=== PATIENT | female | born 1975 | race Two or more races ===

== ENCOUNTER 2021-08-28 11:40 | Inpatient (IN) | payer MEDICAID, OTHER ==
[~2021-08-28] VITALS: Ht 165.1 cm; Wt 100.5 kg
[2021-08-28] MEDS: POTASSIUM CHL 20MEQ/100ML 100 ML IV SCH (01:00)
[2021-08-28] MEDS: cefTRIAXone 1GM/50ML D5W 50 ML IV SCH (01:24)
[2021-08-28] MEDS: metroNIDAZOLE 500MG/100ML 100 ML IV SCH (01:24)
[2021-08-28] MEDS ORDERED: PROMETHAZINE HCL 25 MG/ML 1ML IV ONE (12:00)
[2021-08-28] MEDS ORDERED: SODIUM CHLORIDE 0.9% 1,000 ML IVB ONE (12:00)
[2021-08-28 13:42] LABS: Basophils # (auto) 0.1 10 ^3/uL (0-0.2); Basophils % (auto) 0.5 % (0.0-2.0); Eosinophils # (auto) 0 10 ^3/uL (0-0.8); Eosinophils % (auto) 0.1 % (0.0-7.0); Hematocrit 39.7 % (36.0-46.0); Lymphocytes # (auto) 1.6 10 ^3/uL (0.4-5.4); Lymphocytes % (auto) 7.8 % (10.0-50.0); Mean Corpuscular Hemoglobin 28.5 pg (28.0-32.0); Mean Corpuscular Hgb Conc. 32.7 g/dL (32.0-36.0); Mean Corpuscular Volume 87.2 fL (80.0-100.0); Monocytes # (auto) 0.8 10 ^3/uL (0-1.3); Neutrophils # (auto) 17.9 10 ^3/uL (1.6-8.6); Neutrophils % (auto) 87.6 % (37.0-80.0); Red Blood Cells 4.56 10^6/uL (4.0-5.20); Red Cell Distribution Width 13.6 % (11.8-14.3); White Blood Cell 20.4 10^3/uL (4.4-10.8)
[2021-08-28 14:04] LABS: Albumin 3.4 g/dL (3.4-5.0); Calcium 8.5 mg/dL (8.5-10.1)
[2021-08-28 14:06] LABS: BUN/Creatinine Ratio 11.5
[2021-08-28 14:13] LABS: Bilirubin, Total 0.8 mg/dL (0.2-1.0); Total Protein 7.9 g/dL (6.4-8.2)
[2021-08-28 14:37] LABS: Potassium 2.8 mmol/L (3.5-5.1)
[2021-08-28] MEDS ORDERED: SODIUM CHLORIDE 0.9% 1,000 ML IV ONE (15:00)
[2021-08-28] MEDS ORDERED: levoFLOXacin 500MG 100 ML IV ONE (15:00)
[2021-08-28] MEDS ORDERED: POTASSIUM CHL 20 Meq TABLET PO ONE (15:00)
[2021-08-28 15:22] LABS: Urine Bacteria FEW /hpf (None Seen); Urine Blood 3+ /uL (Negative); Urine Specific Gravity 1.009 (1.001-1.035); Urine WBC 7 /hpf (0 - 5)
[2021-08-28] MEDS ORDERED: SODIUM CHLORIDE 0.9% 1,000 ML IV SCH (23:15)
[2021-08-28] MEDS ORDERED: ACETAMINOPHEN 325 MG TAB PO PRN (23:15)
[2021-08-28] MEDS ORDERED: ONDANSETRON HCL 4 MG/2 ML VIAL IV PRN (23:15)
[2021-08-28] MEDS: MORPHINE SULFATE INJ 2 MG/ml SYRG IV PRN (23:34)
[2021-08-29] MEDS ORDERED: MORPHINE SULFATE INJ 2 MG/ml SYRG IV PRN
[2021-08-29] MEDS ORDERED: NITROGLYCERIN 0.4 MG SL TAB SL PRN
[2021-08-29] MEDS: MORPHINE SULFATE INJ 2 MG/ml SYRG IV PRN ×2 (04:38→10:41)
[2021-08-29 04:46] VITALS: BP_SYST 118; BP_SYST 122; BP_DIAS 58; BP_DIAS 59; BP_DIAS 85
[2021-08-29 05:00] VITALS: BP 122/57
[2021-08-29] MEDS: metroNIDAZOLE 500MG/100ML 100 ML IV SCH ×3 (06:07→22:16)
[2021-08-29 09:00] VITALS: BP 109/60
[2021-08-29 09:00] LABS: Basophils # (auto) 0 10 ^3/uL (0-0.2); Basophils % (auto) 0.2 % (0.0-2.0); Eosinophils # (auto) 0.1 10 ^3/uL (0-0.8); Eosinophils % (auto) 0.4 % (0.0-7.0); Hematocrit 34.8 % (36.0-46.0); Hemoglobin 11.4 g/dL (12.2-16.2); Lymphocytes # (auto) 1.5 10 ^3/uL (0.4-5.4); Mean Corpuscular Hemoglobin 28.7 pg (28.0-32.0); Mean Corpuscular Hgb Conc. 32.7 g/dL (32.0-36.0); Monocytes # (auto) 0.8 10 ^3/uL (0-1.3); Monocytes % (auto) 4.4 % (0.0-12.0); Neutrophils # (auto) 14.9 10 ^3/uL (1.6-8.6); Red Blood Cells 3.95 10^6/uL (4.0-5.20); Red Cell Distribution Width 13.7 % (11.8-14.3); White Blood Cell 17.2 10^3/uL (4.4-10.8)
[2021-08-29 09:16] LABS: INR 1.34 (0.9-1.15); Partial Thromboplastin Time 31.8 sec (24.6-33.4)
[2021-08-29 09:22] LABS: Albumin 2.4 g/dL (3.4-5.0); Calcium 7.4 mg/dL (8.5-10.1); Potassium 3.2 mmol/L (3.5-5.1)
[2021-08-29 09:24] LABS: BUN/Creatinine Ratio 9.1
[2021-08-29 09:27] LABS: Bilirubin, Total 0.5 mg/dL (0.2-1.0); Total Protein 6.2 g/dL (6.4-8.2)
[2021-08-29] MEDS: FAMOTIDINE (10MG/ML) 2ML VL IV SCH (10:40)
[2021-08-29 13:00] VITALS: BP 116/62
[2021-08-29] MEDS ORDERED: HYDR25TA5 GT (15:19)
[2021-08-29] MEDS ORDERED: CETI1TAB36 PO (15:19)
[2021-08-29] MEDS ORDERED: FENO145T27 OR (15:19)
[2021-08-29] MEDS ORDERED: CYCL-839 PO (15:19)
[2021-08-29] MEDS ORDERED: OMEP20TA PO (15:19)
[2021-08-29] MEDS ORDERED: CHOL20007 PO (15:19)
[2021-08-29] MEDS ORDERED: HYDR-4902 PO (15:20)
[2021-08-29] MEDS: D5W/SOD CHL 0.45%/KCL 40MEQ 1,000 ML IV SCH ×2 (16:15→18:15)
[2021-08-29] MEDS: MORPHINE SULFATE 4 MG/ML SYR/VIAL IV PRN ×2 (16:29→21:16)
[2021-08-29 17:00] VITALS: BP 117/64
[2021-08-29] MEDS: cefTRIAXone 1GM/50ML D5W 50 ML IV SCH (21:16)
[2021-08-29 21:42] VITALS: BP 114/65
[2021-08-30] MEDS: D5W/SOD CHL 0.45%/KCL 40MEQ 1,000 ML IV SCH ×2 (04:49→14:15)
[2021-08-30 05:00] VITALS: BP 118/62
[2021-08-30 06:08] LABS: Basophils # (auto) 0 10 ^3/uL (0-0.2); Basophils % (auto) 0.2 % (0.0-2.0); Eosinophils # (auto) 0.1 10 ^3/uL (0-0.8); Eosinophils % (auto) 0.7 % (0.0-7.0); Hematocrit 33.8 % (36.0-46.0); Lymphocytes # (auto) 1.2 10 ^3/uL (0.4-5.4); Lymphocytes % (auto) 9.5 % (10.0-50.0); Mean Corpuscular Hemoglobin 28.9 pg (28.0-32.0); Mean Corpuscular Hgb Conc. 32.7 g/dL (32.0-36.0); Mean Corpuscular Volume 88.4 fL (80.0-100.0); Monocytes # (auto) 0.5 10 ^3/uL (0-1.3); Monocytes % (auto) 3.9 % (0.0-12.0); Neutrophils # (auto) 10.8 10 ^3/uL (1.6-8.6); Neutrophils % (auto) 85.7 % (37.0-80.0); Red Blood Cells 3.82 10^6/uL (4.0-5.20); Red Cell Distribution Width 13.9 % (11.8-14.3); White Blood Cell 12.6 10^3/uL (4.4-10.8)
[2021-08-30] MEDS: metroNIDAZOLE 500MG/100ML 100 ML IV SCH ×3 (06:21→22:00)
[2021-08-30 06:32] LABS: Potassium 4.1 mmol/L (3.5-5.1)
[2021-08-30 06:40] LABS: Albumin 2.3 g/dL (3.4-5.0); BUN/Creatinine Ratio 12.9; Bilirubin, Total 0.4 mg/dL (0.2-1.0); Calcium 7.8 mg/dL (8.5-10.1); Total Protein 6.4 g/dL (6.4-8.2)
[2021-08-30] MEDS: MORPHINE SULFATE INJ 2 MG/ml SYRG IV PRN ×4 (07:06→21:14)
[2021-08-30 07:55] VITALS: BP 125/72
[2021-08-30 08:45] VITALS: BP 125/72
[2021-08-30] MEDS: FAMOTIDINE (10MG/ML) 2ML VL IV SCH (09:28)
[2021-08-30 13:00] VITALS: BP 119/83
[2021-08-30 17:00] VITALS: BP 132/97
[2021-08-30] MEDS: cefTRIAXone 1GM/50ML D5W 50 ML IV SCH (21:11)
[2021-08-30 22:00] VITALS: BP 136/64
[2021-08-31] MEDS: D5W/SOD CHL 0.45%/KCL 40MEQ 1,000 ML IV SCH ×2 (00:15→06:11)
[2021-08-31] MEDS: MORPHINE SULFATE 4 MG/ML SYR/VIAL IV PRN ×2 (01:20→22:08)
[2021-08-31 05:00] VITALS: BP 117/80
[2021-08-31] MEDS: metroNIDAZOLE 500MG/100ML 100 ML IV SCH ×3 (05:23→22:09)
[2021-08-31 06:26] LABS: Basophils # (auto) 0.1 10 ^3/uL (0-0.2); Basophils % (auto) 1.1 % (0.0-2.0); Eosinophils # (auto) 0.2 10 ^3/uL (0-0.8); Eosinophils % (auto) 2.8 % (0.0-7.0); Hematocrit 31.7 % (36.0-46.0); Hemoglobin 10.7 g/dL (12.2-16.2); Lymphocytes # (auto) 1.5 10 ^3/uL (0.4-5.4); Lymphocytes % (auto) 18.5 % (10.0-50.0); Mean Corpuscular Hemoglobin 29.9 pg (28.0-32.0); Mean Corpuscular Hgb Conc. 33.9 g/dL (32.0-36.0); Mean Corpuscular Volume 88.3 fL (80.0-100.0); Monocytes # (auto) 0.4 10 ^3/uL (0-1.3); Monocytes % (auto) 5.1 % (0.0-12.0); Neutrophils # (auto) 6.1 10 ^3/uL (1.6-8.6); Neutrophils % (auto) 72.5 % (37.0-80.0); Nucleated Red Blood Cells % 0.1 %; Red Blood Cells 3.59 10^6/uL (4.0-5.20); Red Cell Distribution Width 13.8 % (11.8-14.3); White Blood Cell 8.4 10^3/uL (4.4-10.8)
[2021-08-31 06:36] LABS: Potassium 3.9 mmol/L (3.5-5.1)
[2021-08-31 06:40] LABS: Albumin 2.4 g/dL (3.4-5.0); BUN/Creatinine Ratio 8.8; Calcium 8.2 mg/dL (8.5-10.1)
[2021-08-31 06:50] LABS: Bilirubin, Total 0.3 mg/dL (0.2-1.0); Total Protein 6.3 g/dL (6.4-8.2)
[2021-08-31 08:00] VITALS: BP 130/60
[2021-08-31] MEDS ORDERED: BUPIVACAINE 0.25% INJ 50ML VIAL ONE (08:02)
[2021-08-31] MEDS ORDERED: ceFAZolin 1GM/50ML 100 ML IV ONE (08:08)
[2021-08-31] MEDS ORDERED: fentaNYL CITRATE 5 ML ONE (08:14)
[2021-08-31] MEDS ORDERED: MIDAZOLAM HCL 2MG/2ML 2ml VIAL (1mg/ml) ONE (08:14)
[2021-08-31] MEDS ORDERED: ROCURONIUM 10MG/ML 10ML VIAL IV ONE (08:14)
[2021-08-31] MEDS ORDERED: ONDANSETRON HCL 4 MG/2 ML VIAL ONE (08:15)
[2021-08-31] MEDS ORDERED: PROPOFOL 10 MG/ML 20 ML IV ONE (08:15)
[2021-08-31] MEDS ORDERED: LIDOCAINE 2% (LOCAL ANESTH.) PF 5ml SDV ONE (08:15)
[2021-08-31 09:00] VITALS: BP 130/60
[2021-08-31] MEDS ORDERED: LIDOCAINE 1%-Mpf/Epinephrine 1:200,000 ONE (09:12)
[2021-08-31] MEDS ORDERED: ONDANSETRON HCL 4 MG/2 ML VIAL IV PRN (09:30)
[2021-08-31] MEDS ORDERED: HYDROmorphone HCL 2 MG/ML VL/or syr IV PRN (09:30)
[2021-08-31] MEDS ORDERED: NEOSTIGMINE 1 MG/ML INJ (10mg/10ML VIAL) ONE (09:32)
[2021-08-31] MEDS ORDERED: GLYCOPYRROLATE 0.2 MG/ML 1ML VIAL ONE ×2 (09:32→09:33)
[2021-08-31] MEDS: HYDROmorphone HCL 2 MG/ML VL/or syr IV PRN ×4 (10:13→10:43)
[2021-08-31] MEDS: FAMOTIDINE (10MG/ML) 2ML VL IV SCH (10:36)
[2021-08-31] MEDS: MORPHINE SULFATE INJ 2 MG/ml SYRG IV PRN ×2 (14:01→18:34)
[2021-08-31 17:00] VITALS: BP 138/83
[2021-08-31 18:02] VITALS: BP 138/83
[2021-08-31] MEDS: cefTRIAXone 1GM/50ML D5W 50 ML IV SCH (21:00)
[2021-08-31 22:56] VITALS: BP 130/62
[2021-08-31] MEDS: HYDROcodone-ACET 5/325MG TAB PO PRN (23:50)
[2021-09-01 04:38] VITALS: BP 128/79
[2021-09-01] MEDS: metroNIDAZOLE 500MG/100ML 100 ML IV SCH ×3 (05:34→22:00)
[2021-09-01 06:57] LABS: Basophils # (auto) 0 10 ^3/uL (0-0.2); Basophils % (auto) 0.5 % (0.0-2.0); Eosinophils # (auto) 0.1 10 ^3/uL (0-0.8); Eosinophils % (auto) 1.9 % (0.0-7.0); Hematocrit 30.6 % (36.0-46.0); Hemoglobin 10.3 g/dL (12.2-16.2); Lymphocytes # (auto) 1.7 10 ^3/uL (0.4-5.4); Lymphocytes % (auto) 21.5 % (10.0-50.0); Mean Corpuscular Hemoglobin 29.3 pg (28.0-32.0); Mean Corpuscular Hgb Conc. 33.7 g/dL (32.0-36.0); Mean Corpuscular Volume 87.1 fL (80.0-100.0); Monocytes # (auto) 0.5 10 ^3/uL (0-1.3); Monocytes % (auto) 6.2 % (0.0-12.0); Neutrophils # (auto) 5.4 10 ^3/uL (1.6-8.6); Neutrophils % (auto) 69.9 % (37.0-80.0); Red Blood Cells 3.52 10^6/uL (4.0-5.20); Red Cell Distribution Width 13.9 % (11.8-14.3); White Blood Cell 7.8 10^3/uL (4.4-10.8)
[2021-09-01 07:04] LABS: Potassium 3.8 mmol/L (3.5-5.1)
[2021-09-01 07:11] LABS: Albumin 2.2 g/dL (3.4-5.0); BUN/Creatinine Ratio 9.6; Bilirubin, Total 0.4 mg/dL (0.2-1.0); Calcium 7.7 mg/dL (8.5-10.1)
[2021-09-01] MEDS: MORPHINE SULFATE 4 MG/ML SYR/VIAL IV PRN ×3 (08:24→18:54)
[2021-09-01 09:00] VITALS: BP 118/80
[2021-09-01] MEDS: FAMOTIDINE (10MG/ML) 2ML VL IV SCH (10:30)
[2021-09-01] MEDS ORDERED: LEVO500T31 PO (11:57)
[2021-09-01] MEDS ORDERED: METR500T PO (11:57)
[2021-09-01] MEDS ORDERED: HYDR-4902 PO (11:57)
[2021-09-01 13:00] VITALS: BP 137/85
[2021-09-01 17:00] VITALS: BP 151/85
[2021-09-01] MEDS: cefTRIAXone 1GM/50ML D5W 50 ML IV SCH (21:00)
[2021-09-01 22:00] VITALS: BP 153/87
[2021-09-01] MEDS ORDERED: metroNIDAZOLE 500 MG TAB PO ONE (22:30)
[2021-09-02 05:00] VITALS: BP 141/76
[2021-09-02] MEDS: metroNIDAZOLE 500MG/100ML 100 ML IV SCH (06:00)
[2021-09-02] MEDS: HYDROcodone-ACET 5/325MG TAB PO PRN (06:45)
[2021-09-02 09:00] VITALS: BP 135/77
[2021-09-02 13:00] VITALS: BP 163/113
== END 2021-09-02 12:45 | disposition home or self-care (01) | DRG 263 ==
LOC: ER 11:40 → EAST 23:56
PROVIDERS: ADMIT Nurse Practitioner Family; ATTEND Internal Medicine
PROC: 0FT44ZZ Resection of Gallbladder, Percutaneous Endoscopic Approach (ICD-10-PCS; principal; 2021-08-31 08:25)
DX: K81.0 Acute cholecystitis (principal); E87.1 Hypo-osmolality and hyponatremia; K76.0 Fatty (change of) liver, not elsewhere classified; E87.6 Hypokalemia; R73.9 Hyperglycemia, unspecified; D72.829 Elevated white blood cell count, unspecified; I10 Essential (primary) hypertension; E78.5 Hyperlipidemia, unspecified; Z20.822 Contact with and (suspected) exposure to COVID-19; E66.01 Morbid (severe) obesity due to excess calories; Z68.30 Body mass index [BMI] 30.0-30.9, adult
CPT/HCPCS: 36415; 74176; 76705; 78226; 80053; 81001; 82150; 83036; 83690; 84132; 84702; 85025; 85610; 85730; 86850; 86900; 86901; 96361; 96374; 99291; G0378; J0690; J0696; J1956; J2001; J2250; J2405; J2704; J3490

== ENCOUNTER 2024-08-20 18:26 | Emergency (ER) | payer MEDICAID ==
[~2024-08-20] VITALS: Ht 165.1 cm; Wt 84.0 kg
[~2024-08-20 18:26] MED LIST: CETI1TAB36 PO; CHOL20007 PO; CYCL-839 PO; FENO145T27 OR; HYDR-4902 PO; HYDR25TA5 GT; LEVO500T31 PO; METR500T PO; OMEP20TA PO
[2024-08-20 18:40] VITALS: BP 127/75; RESP 20; TEMP 99.2; O2SAT 96
[2024-08-20 18:46] VITALS: PULSE 103
--- NOTE | 2024-08-20 18:46 | ED.PDOC ---
HPI Comments 49 year old female with a Hx of HTN presents to the ED for the c/c of Right Sided Chest pain. Pt states that her CP started 2x days ago and has progressively worsened with no alleviating factors at this time. Pt states that her pain radiates down her right arm and to her back at this time. Tenderness on palpitation noted and EKG was 103 Sinus Tach at this time. No other symptoms or modifying factors reported at this time. Patient is alert and oriented x4 and has a stable gait. Chief Complaint: Chest Pain Time Seen by MD: 18:41 Primary Care Provider: DR TOLLIVER Reviewed Notes: Nurses Notes, Surveying Teacher Notes, Medications, Allergies Allergies: Coded Allergies: NO KNOWN ALLERGIES (Unverified , 01/13/12) Home Meds Active Scripts Levofloxacin (Levaquin) 500 Mg Tab, 500 MG PO DAILY, #7 MG Prov:RIMA ANN MD 09/01/21 Metronidazole (Flagyl) 500 Mg Tab, 500 MG PO TID, #21 MG Prov:RIMA ANN MD 09/01/21 Hydrocodone-Acetaminophen (Hydrocodone Bitartrate/AC 5-325 mg) 1 Tab Tab, 1 TAB PO Q6HR PRN MDD pain 5-10, #20 TAB Prov:RIMA ANN MD 09/01/21 Reported Medications Fenofibrate (FENOFIBRATE) 145 Mg Tab, 145 MG OR, TAB 08/29/21 Hctz (Hydrochlorothiazide) 25 Mg Tab, 25 GT, TAB 08/29/21 Cyclobenzaprine Hcl (Cyclobenzaprine Hcl) 10 Mg Tab, 10 MG PO Q8HP PRN for ANXIETY for 30 Days, MG 08/29/21 Cetirizine Hcl (ZYRTEC ALLERGY) 10 Mg Tab, 10 MG PO, TAB 08/29/21 Cholecalciferol (VITAMIN D3) 2,000 Unit Tab, 1 TAB PO DAILY, #30 TAB 5 Refills 08/29/21 Omeprazole (Gnp Omeprazole) 20 Mg Tab, 1 TAB PO DAILY, #90 TAB 1 Refill 08/29/21 Information Source: Patient Mode of Arrival: Ambulatory Severity: Moderate Timing: Days Duration: Since onset, Days Prehospital treatment: None Location: Chest (R) Radiation: Back, Arm (R) Quality: Sharp Onset: At Rest Cardiac Risk Factors: HTN PE Risk Factors: None History of: None Modifying Factors: Exertion Associated Signs and Symptoms: Back Pain Past Medical History PAST MEDICAL HISTORY: HTN Surgical History: Tubal Ligation PATIENT ASSISTANT History: No Pertinent PATIENT ASSISTANT History Family History Family History: Reviewed,noncontributory to illness Social History Smoker: Non-Smoker Alcohol: Denies ETOH Use Drugs: Denies Drug Use Lives In: Home Constitutional: denies: chills, diaphoresis, fatigue, fever, malaise, sweats, weakness, others EENTM: denies: blurred vision, double vision, ear bleeding, ear discharge, ear drainage, ear pain, ear ringing, eye pain, eye redness, hearing loss, mouth pain, mouth swelling, nasal discharge, nose bleeding, nose congestion, nose pain, photophobia, tearing, throat pain, throat swelling, voice changes, others Respiratory: denies: cough, hemoptysis, orthopnea, SOB at rest, shortness of breath, SOB with excertion, stridor, wheezing, others Cardiovascular: reports: chest pain; denies: dizzy spells, diaphoresis, Dyspnea on exertion, edema, irregular heart beat, left arm pain, lightheadedness, palpitations, PND, syncope, others Gastrointestinal: denies: abdomen distended, abdominal pain, blood streaked bowels, constipated, diarrhea, dysphagia, difficulty swallowing, hematemesis, melena, nausea, poor appetite, poor fluid intake, rectal bleeding, rectal pain, vomiting, others Genitourinary: denies: abnormal vagina bleeding, burning, dyspareunia, dysuria, flank pain, frequency, hematuria, incontinence, pain, , vagina d ischarge, urgency, others Neurological: denies: dizziness, fainting, headache, left sided numbness, left sided weakness, numbness, paresthesia, pre-existing deficit, right sided numbness, right sided weakness, seizure, speech problems, tingling, tremors, weakness, others Musculoskeletal: reports: back pain; denies: gout, joint pain, joint swelling, muscle pain, muscle stiffness, neck pain, others Integumetry: denies: bruises, change in color, change in hair/nails, dryness, laceration, lesions, lumps, rash, wounds, others Allergic/Immunocompromised: denies: Difficulty Healing, Frequent Infections, Hives, Itching, others Hematologic/Lymphatic: denies: anemia, blood clots, easy bleeding, easy bruising, swollen glands, others Endocrine: denies: excessive hunger, excessive sweating, excessive thirst, excessive urination, flushing, intolerance to cold, intolerance to heat, unexplained weight gain, unexplained weight loss, others Psychiatric: denies: anxiety, bipolar disorder, depression, hopeless, panic disorder, schizophrenia, sleepless, suicidal, others All Other Systems: Reviewed and Negative Physical Exam General Appearance: Moderate Distress, Normal HEENT: Normal ENT Inspection, TMs Normal Neck: Full Range of Motion, Non-Tender, Normal, Normal Inspection Respiratory: Chest Non-Tender, Lungs Clear, No Respiratory Distress, Normal Breath Sounds Cardiovascular: No Edema, No JVD, No Murmur, No Gallop, Normal Peripheral Pulses, Regular Rate/Rhythm, Tachycardia, Other (right sided chest wall pain on palpitation) Breast Exam: Deferred Gastrointestinal: Non Tender, No Pulsatile Mass, Normal Bowel Sounds, Soft Genitalia: Deferred Pelvic: Deferred Rectal: Deferred Extremities: No calf tenderness, Normal capillary refill, Normal inspection, Normal range of motion, Non-tender, No pedal edema Musculoskeletal : Apperance: Normal Neurologic: Alert, No Motor Deficits, Normal Affect, Normal Mood, No Sensory Deficits Cerebellar Function: Normal Reflexes: Normal Skin: Dry, Normal Color, Warm Lymphatic: No Adenopathy EKG EKG : Pulse Rate (adult): 103 [place]: Normal Cardiac Rhythm: ST Block: None Hypertrophy: None ST: Normal Was a procedure done? Was a procedure done?: No CP Differential Dx Differential Diagnosis: Angina, Electrolyte Disorder, Heart Failure, Hyperthyroidism Differential Diagnosis: CHF, HTN Essential, HTN Accelerated, HTN Encephalopathy Differential Diagnosis: Angina, Chest Wall Pain, Cholelithiasis, Costochondritis, Esophageal reflux/spasm, Gastritis, Pericarditis, Pneumothorax, Pulmonary Embolus X-Ray, Labs, Meds, VS Vital Signs Date Time Temp Pulse Resp B/P (MAP) Pulse Ox O2 Delivery O2 Flow Rate FiO2 08/20/24 18:46 103 08/20/24 18:40 99.2 100 20 127/75 (92) 96 99.2 08/20/24 18:33 103 Lab Test 08/20/24 19:32 08/20/24 18:35 Range/Units Troponin I High Sensitivity < 3 L < 3 L </=34 ng/L White Blood Count 10.5 4.4-10.8 10^3/uL Red Blood Count 4.23 4.0-5.20 10^6/uL Hemoglobin 12.7 12.2-16.2 g/dL Hematocrit 37.6 36.0-46.0 % Mean Corpuscular Volume 89.0 80.0-100.0 fL Mean Corpuscular Hemoglobin 29.9 28.0-32.0 pg Mean Corpuscular Hemoglobin Concent 33.6 32.0-36.0 g/dL Red Cell Distribution Width 13.8 11.8-14.3 % Platelet Count 298 140-450 10^3/uL Mean Platelet Volume 8.7 6.9-10.8 fL Neutrophils (%) (Auto) 73.9 37.0-80.0 % Lymphocytes (%) (Auto) 19.5 10.0-50.0 % Monocytes (%) (Auto) 4.5 0.0-12.0 % Eosinophils (%) (Auto) 1.5 0.0-7.0 % Basophils (%) (Auto) 0.6 0.0-2.0 % Neutrophils # (Auto) 7.8 1.6-8.6 10 ^3/uL Lymphocytes # (Auto) 2.1 0.4-5.4 10 ^3/uL Monocytes # (Auto) 0.5 0-1.3 10 ^3/uL Eosinophils # (Auto) 0.2 0-0.8 10 ^3/uL Basophils # (Auto) 0.1 0-0.2 10 ^3/uL Nucleated Red Blood Cells 0.0 % Sodium Level 139 136-145 mmol/L Potassium Level 3.2 L 3.5-5.1 mmol/L Chloride Level 105 98-107 mmol/L Carbon Dioxide Level 26 20-31 mmol/L Anion Gap 8 5-15 Blood Urea Nitrogen 6 L 9-23 mg/dL Creatinine 0.79 0.550-1.02 mg/dL Glomerular Filtration Rate Calc 92 >90 mL/min BUN/Creatinine Ratio 7.6 L 10.0-20.0 Serum Glucose 119 H 74-106 mg/dL Calcium Level 9.3 8.7-10.4 mg/dL PATIENT: SOUTH MENDEZ ACCT: [id number] UNIT: [id number] : 1975 LOC: ER ROOM / BED: / AGE / SEX: 49 / F ADM STATUS: REG ER SERVICE [id number] ORDERING PHYSICIAN: KAREN HAM PROCEDURE(s): CXR1 - CHEST XRAY 1 VIEW REASON: cp ORDER NUMBER(s): [id number], ACCESSION NUMBER(s): [id number] EXAM: XY CHEST XRAY 1 VIEW CLINICAL HISTORY: cp TECHNIQUE: Single AP view of the chest WID: COMPARISON: None FINDINGS: Lines and tubes: None Chest: The heart size and pulmonary vasculature is within normal limits. No pleural effusion, pneumothorax, or consolidation. The osseous structures are grossly intact. IMPRESSION: No acute cardiopulmonary abnormality. X-Ray, Labs, Meds, VS Comment Imaging: X-rays and CT scans were reviewed and interpreted by this provider, imaging shows no fractures and no pathological disease. Pending radiology review. Laboratory: Labs reviewed and interpreted by this provider. No significant abnormalities noted. Patient has prior medical visits reviewed. Med reconciliation performed Vital signs reviewed Time of 1ST Reevaluation: 19:12 Reevaluation 1ST: Unchanged Patient Education/Counseling: Diagnosis, Treatment, Need For Follow Up (Follow up with PCP in the next 2-3 days. Return to the emergency department in the next 24 hours if symptoms worsened.) Family Education/Counseling: No Family Present SEPSIS Sepsis Screen Physician Orders Electrocardigram (08/20/24 18:40) Electrocardigram (08/20/24 19:40) Electrocardigram (08/20/24 21:40) Urinalysis (08/20/24 19:00) Chest Xray 1 View (08/20/24 18:47) Vital Signs Date Time Temp Pulse Resp B/P (MAP) Pulse Ox O2 Delivery O2 Flow Rate FiO2 08/20/24 18:46 103 08/20/24 18:40 99.2 100 20 127/75 (92) 96 99.2 08/20/24 18:33 103 Laboratory Tests Test 08/20/24 18:35 White Blood Count 10.5 10^3/uL (4.4-10.8) Departure 1 Departure Time of Disposition: 21:16 Impression: Primary Impression: Musculoskeletal chest pain Disposition: HOME / SELF CARE / HOMELESS Condition: Fair Discharged With: Self Critical Care Note Critical Care Time?: No Stability Stability form required: No Heart Score Heart Score: Heart Score Response (Comments) Value History N/A 0 EKG Normal 0 Age 45-64 1 Risk Factors 1 or 2 risk factors 1 Troponin Normal limit 0 Total 2 I personally scribed for KAREN HAMP ([email or web address]) on 08/20/24 at 18:46. Electronically submitted by Jason Brito ([email or web address]). I personally scribed for KAREN HAMP ([email or web address]) on 08/20/24 at 19:52. Electronically submitted by Jason Brito ([email or web address]). KAREN HAM Aug 20, 2024 18:46
[2024-08-20 18:59] LABS: Hematocrit 37.6 % (36.0-46.0); Hemoglobin 12.7 g/dL (12.2-16.2); Mean Corpuscular Hemoglobin 29.9 pg (28.0-32.0); Mean Corpuscular Volume 89.0 fL (80.0-100.0); Nucleated Red Blood Cells % 0.0 %
[2024-08-20 19:06] LABS: Chloride 105 mmol/L (98-107); Sodium 139 mmol/L (136-145)
[2024-08-20 19:07] LABS: Anion Gap 8 (5-15); Calcium 9.3 mg/dL (8.7-10.4); Carbon Dioxide 26 mmol/L (20-31)
[2024-08-20 19:12] LABS: BUN/Creatinine Ratio 7.6 (10.0-20.0)
[2024-08-20 19:24] LABS: Blood Urea Nitrogen 6 mg/dL (9-23); Glucose 119 mg/dL (74-106); Potassium 3.2 mmol/L (3.5-5.1)
--- NOTE | 2024-08-20 19:48 | DVH ---
EXAM: XY CHEST XRAY 1 VIEW CLINICAL HISTORY: cp TECHNIQUE: Single AP view of the chest WID: COMPARISON: None FINDINGS: Lines and tubes: None Chest: The heart size and pulmonary vasculature is within normal limits. No pleural effusion, pneumothorax, or consolidation. The osseous structures are grossly intact. IMPRESSION: No acute cardiopulmonary abnormality.
[2024-08-20] MEDS ORDERED: KETOROLAC TROMETH 30 MG/ML 1ML VIAL IM ONE (21:30)
[2024-08-20 21:49] LABS: Urine Protein, UAD Negative (Negative)
--- NOTE | 2024-08-21 01:36 | ECG ---
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
== END 2024-08-20 21:50 | disposition home or self-care (01) ==
LOC: ER 18:30
DX: R07.89 Other chest pain (principal); I10 Essential (primary) hypertension; Z98.51 Tubal ligation status; Z79.899 Other long term (current) drug therapy
CPT/HCPCS: 36415; 71045; 80048; 81001; 84484; 85025; 93005